=== PATIENT | female | born 1960 | race Caucasian/White ===

== ENCOUNTER → 2016-11-30 | Outpatient (CLI) | payer OTHER ==
[~2016-11-30] MED LIST: FISH OIL1 GM PO; HYDROCHLOROTHIA25 MG PO; KEFLEX500 MG PO; LASIX20 MG PO; LIPITOR20 MG PO; PRINIVIL20 MG PO; SINGULAIR10 MG PO; SYNTHROID75 MCG PO
== END | disposition short-term general hospital (02) ==
LOC: CLCARD 10:24
DX: R60.0 Localized edema (principal); I10 Essential (primary) hypertension; E78.5 Hyperlipidemia, unspecified; E66.01 Morbid (severe) obesity due to excess calories; R12 Heartburn; R06.02 Shortness of breath; R03.0 Elevated blood-pressure reading, without diagnosis of hypertension; Z79.899 Other long term (current) drug therapy

== ENCOUNTER → 2016-12-14 | Outpatient (CLI) | payer OTHER | END | disposition short-term general hospital (02) | LOC: CLCARD 10:17 | DX: E78.5 Hyperlipidemia, unspecified (principal); I10 Essential (primary) hypertension; E66.01 Morbid (severe) obesity due to excess calories; R60.0 Localized edema; R12 Heartburn; R06.02 Shortness of breath ==